=== PATIENT | male | born 1980 ===

== ENCOUNTER 2017-09-09 05:48 | Emergency (ER) | payer SELFPAY ==
[2017-09-09 05:49] VITALS: BMI 21.4
--- NOTE | 2017-09-09 06:35 | ED PDOC ---
Arrival/HPI - General Chief Complaint: Body Fluid Exposure Time Seen by Provider: 09/09/17 06:34 Historian: Patient - History of Present Illness Narrative History of Present Illness (Text): 09/09/17 06:34 Tawny Patel is a 36 year old male, whose past medical history includes mitral valve prolapse, who presents to the Emergency department complaining of fever. Patient states he developed subjective fever yesterday evening with associated body aches, sore throat, headache, and dizziness. Patient states he did not receive an influenza vaccination this year. Patient denies any chest pain, shortness of breath, nausea, vomiting, diarrhea, urinary symptoms, back pain, neck pain, or any other complaints. Time/Duration: Other (yesterday) Symptom Onset: Gradual Symptom Course: Unchanged Activities at Onset: Light Context: Home Past Medical History - Provider Review Nursing Documentation Reviewed: Yes - Past Medical History Past Medical History: No Previous - Pulmonary Hx Respiratory Disorders: No - Neurological Hx Neurological Disorder: No - HEENT Hx HEENT Disorder: No - Renal Hx Renal Disorder: No - Endocrine/Metabolic Hx Endocrine Disorders: No - Hematological/Oncological Hx Blood Disorders: No - Integumentary Hx Dermatological Disorder: No - Musculoskeletal/Rheumatological Hx Musculoskeletal Disorders: No - Gastrointestinal Hx Gastrointestinal Disorders: No - Genitourinary/Gynecological Hx Genitourinary Disorders: No - Psychiatric Hx Depression: No Hx Emotional Abuse: No Hx Physical Abuse: No Hx Substance Use: No - Past Surgical History Past Surgical History: No Previous - Suicidal Assessment Feels Threatened In Home Enviroment: No Family/Social History - Physician Review Nursing Documentation Reviewed: Yes Family/Social History: Unknown Family HX Smoking Status: Never Smoked Hx Alcohol Use: Yes Hx Substance Use: No Hx Substance Use Treatment: No Allergies/Home Meds Allergies/Adverse Reactions: Allergies No Known Allergies Allergy (Verified 04/28/16 09:35) Review of Systems - Physician Review All systems were reviewed & negative as marked: Yes - Review of Systems Constitutional: Fevers Eyes: Normal ENT: Sore Throat Respiratory: absent: Cough Cardiovascular: Normal. absent: Chest Pain Gastrointestinal: Normal. absent: Abdominal Pain, Diarrhea, Nausea, Vomiting Genitourinary Male: Normal. absent: Dysuria, Frequency, Hematuria, Urinary Output Changes Musculoskeletal: Myalgias (+generalized body aches). absent: Back Pain, Neck Pain Skin: Normal. absent: Rash Neurological: Headache, Dizziness Endocrine: Normal Hemo/Lymphatic: Normal Psychiatric: Normal Physical Exam Vital Signs Reviewed: Yes Vital Signs Temp Pulse Resp BP Pulse Ox 09/09/17 07:58 78 18 126/66 97 09/09/17 07:43 99.2 F 09/09/17 07:07 99.2 F 85 20 122/64 95 09/09/17 06:23 100.0 F H 111 H 18 130/72 99 Temperature: Febrile Blood Pressure: Normal Pulse: Regular Respiratory Rate: Normal Appearance: Positive for: Well-Appearing, Non-Toxic, Comfortable Pain Distress: None Mental Status: Positive for: Alert and Oriented X 3 - Systems Exam Head: Present: Atraumatic, Normocephalic Pupils: Present: PERRL Extroacular Muscles: Present: EOMI Conjunctiva: Present: Normal Ears: Present: Normal, NORMAL TM, Normal Canal. No: Erythema, TM Bulging, Fluid , TM Perf Mouth: Present: Moist Mucous Membranes Pharnyx: Present: ERYTHEMA (Pharyngeal erythema). No: EXUDATE, TONSILS ENLARGED , Peritonsilar Swelling, Uvular Deviation, Muffled/Hoarse Voice, Strider, Soft Palate/Uvular Edema Nose (External): Present: Atraumatic Nose (Internal): Present: Normal Inspection Neck: Present: Normal Range of Motion. No: Meningeal Signs, MIDLINE TENDERNESS , Paraspinal Tenderness Respiratory/Chest: Present: Clear to Auscultation, Good Air Exchange. No: Respiratory Distress, Accessory Muscle Use Cardiovascular: Present: Regular Rate and Rhythm, Normal S1, S2. No: Murmurs Abdomen: No: Tenderness, Distention, Peritoneal Signs Back: Present: Normal Inspection Upper Extremity: Present: Normal Inspection. No: Cyanosis, Edema Lower Extremity: Present: Normal Inspection. No: Edema Neurological: Present: GCS=15, CN II-XII Intact, Speech Normal Skin: Present: Warm, Dry, Normal Color. No: Rashes Psychiatric: Present: Alert, Oriented x 3, Normal Insight, Normal Concentration Medical Decision Making ED Course and Treatment: 09/09/17 06:34 Impression: 36 year old male complaining of subjective fever, sore throat, body aches, headache, and dizziness since yesterday evening. Plan: -- Labs -- Rapid influenza, rapid strep -- Reassess and disposition Progress Notes: - Lab Interpretations Lab Results: 09/09/17 06:40 Lab Results 09/09/17 06:40: Influenza Typ A,B (EIA) Negative for flu a/b, Grp A Beta Strep Ag Positive H 09/09/17 06:40: WBC 13.3 H, RBC 5.07, Hgb 14.5, Hct 42.0, MCV 82.8, MCH 28.6, MCHC 34.5, RDW 13.0, Plt Count 185, MPV 9.8, Gran % 84.1 H, Lymph % (Auto) 9.9 L , [place] % (Auto) 5.0, Eos % (Auto) 0.8 L, Baso % (Auto) 0.2, Gran # 11.17 H, Lymph # (Auto) 1.3, [place] # (Auto) 0.7 H, Eos # (Auto) 0.1, Baso # (Auto) 0.02 - RAD Interpretation Radiology Orders: 09/09/17 06:36 CHEST TWO VIEWS (PA/LAT) [RAD] Stat - Medication Orders Current Medication Orders: Discontinued Medications Ceftriaxone Sodium (Rocephin 1 Gram Ivpb) 1 gm in 100 mls @ 200 mls/hr IVPB STAT STA PRN Reason: Protocol Stop: 09/09/17 07:59 Last Admin: 09/09/17 07:38 Dose: 200 mls/hr eMAR Start Stop Document 09/09/17 07:38 OCS (Rec: 09/09/17 07:38 OCS [id number]) Intravenous Solution Start Date 09/09/17 Start Time 07:38 End Date 09/09/17 End time 08:08 Total Infusion Time 30 Ibuprofen (Motrin Tab) 800 mg PO STAT STA Stop: 09/09/17 07:37 Last Admin: 09/09/17 07:43 Dose: 800 mg MAR Pain/Vitals Document 09/09/17 07:43 OCS (Rec: 09/09/17 07:46 OCS [id number]) Pain Reassessment Is This A Pain ReAssessment? Yes Sleep Is patient sleeping during reassessment? No Presence of Pain Presence of Pain Yes Pain Scale Used Pain Scale Used Numeric Location Pain Location Body Site Generalized Description Constant Intensity 8 Scale Used Numeric Pain Behavior Irritability Restlessness Facial Grimacing VS Changes Aggravating Factors ADL's Vitals Temperature (97.6 F-99.6 F) 99.2 F Temperature Source Oral - Transfer of Care Patient signed out to Dr:: salma labs and dispo - Scribe Statement The provider has reviewed the documentation as recorded by the Scribdarren Melton Provider Scribe Attestation: All medical record entries made by the Scribe were at my direction and personally dictated by me. I have reviewed the chart and agree that the record accurately reflects my personal performance of the history, physical exam, medical decision making, and the department course for this patient. I have also personally directed, reviewed, and agree with the discharge instructions and disposition. Disposition/Present on Arrival - Present on Arrival Any Indicators Present on Arrival: No History of DVT/PE: No History of Uncontrolled Diabetes: No Urinary Catheter: No History of Decub. Ulcer: No History Surgical Site Infection Following: None - Disposition Have Diagnosis and Disposition been Completed?: Yes Diagnosis: Strep sore throat, Mitral valve prolapse Disposition: HOME/ ROUTINE Disposition Time: 07:00 Condition: GOOD Discharge Instructions (ExitCare): Mitral Valve Prolapse, Strep Throat (DC) Additional Instructions: Ysrael - Start the Keflex later today. Rest, Plenty of Fluids, Tylenol for Fever, Motrin for Body Aches, Follow up with your doctor next week. Return to us if worse or new symptoms. Avel- Dr. Musa Titus Prescriptions: Cephalexin [cephalexin] 500 mg PO QID #40 cap Forms: [facility] ([place]), SCHOOL NOTE, WORK NOTE
[2017-09-09 07:01] LABS: BASO # 0.02 K/mm3 (0.0-2.0); BASO % 0.2 % (0.0-3.0); EOS # 0.1 (0.0-0.7); EOS % 0.8 % (1.5-5.0); GRAN # 11.17 (1.4-6.5); GRAN % 84.1 % (50.0-68.0); HEMOGLOBIN 14.5 g/dL (14.0-18.0); LYMPH # 1.3 (1.2-3.4); LYMPH % 9.9 % (22.0-35.0); MEAN CELL VOLUME 82.8 fl (80.0-105.0); MEAN CORPUSCULAR HEMOGLOBIN 28.6 pg (25.0-35.0); MEAN CORPUSCULAR HGB CONC 34.5 g/dl (31.0-37.0); MEAN PLATELET VOLUME 9.8 fl (7.0-11.0); MONO # 0.7 (0.1-0.6); RBC 5.07 10^6/uL (3.5-6.1); WHITE BLOOD COUNT 13.3 10^3/ul (4.5-11.0)
[2017-09-09 07:09] VITALS: TEMP 99.2
--- NOTE | 2017-09-09 07:18 | ED PDOC ---
Physical Exam Vital Signs Reviewed: Yes Vital Signs Temp Pulse Resp BP Pulse Ox 09/09/17 07:07 99.2 F 85 20 122/64 95 09/09/17 06:23 100.0 F H 111 H 18 130/72 99 Temperature: Febrile Blood Pressure: Normal Pulse: Tachycardic Respiratory Rate: Normal Medical Decision Making ED Course and Treatment: 09/09/17 07:18 Patient endorsed to me by Dr. Odom, pending labs, re-evaluation and disposition. 09/09/17 07:33 Labs reviewed, patient is positive for strep throat. Plan is to discharge patient home with prescription for Keflex. I have discussed the results and plan with the patient, who expresses understanding. Patient is stable for discharge. Patient was instructed to follow up with physician or return if symptoms worsen or new concerning symptoms arise. - Lab Interpretations Lab Results: 09/09/17 06:40 Lab Results 09/09/17 06:40: Influenza Typ A,B (EIA) Negative for flu a/b, Grp A Beta Strep Ag Positive H 09/09/17 06:40: WBC 13.3 H, RBC 5.07, Hgb 14.5, Hct 42.0, MCV 82.8, MCH 28.6, MCHC 34.5, RDW 13.0, Plt Count 185, MPV 9.8, Gran % 84.1 H, Lymph % (Auto) 9.9 L , [place] % (Auto) 5.0, Eos % (Auto) 0.8 L, Baso % (Auto) 0.2, Gran # 11.17 H, Lymph # (Auto) 1.3, [place] # (Auto) 0.7 H, Eos # (Auto) 0.1, Baso # (Auto) 0.02 - RAD Interpretation Radiology Orders: 09/09/17 06:36 CHEST TWO VIEWS (PA/LAT) [RAD] Stat - Medication Orders Current Medication Orders: Ceftriaxone Sodium (Rocephin 1 Gram Ivpb) 1 gm in 100 mls @ 200 mls/hr IVPB STAT STA PRN Reason: Protocol Stop: 09/09/17 07:59 Ibuprofen (Motrin Tab) 800 mg PO STAT STA Stop: 09/09/17 07:37 - Scribe Statement The provider has reviewed the documentation as recorded by the Scribdarren Braga Provider Scribe Attestation: All medical record entries made by the Scribe were at my direction and personally dictated by me. I have reviewed the chart and agree that the record accurately reflects my personal performance of the history, physical exam, medical decision making, and the department course for this patient. I have also personally directed, reviewed, and agree with the discharge instructions and disposition. Disposition/Present on Arrival - Present on Arrival Any Indicators Present on Arrival: No History of DVT/PE: No History of Uncontrolled Diabetes: No Urinary Catheter: No History of Decub. Ulcer: No History Surgical Site Infection Following: None - Disposition Have Diagnosis and Disposition been Completed?: Yes Diagnosis: Strep sore throat, Mitral valve prolapse Disposition: HOME/ ROUTINE Disposition Time: 07:33 Patient Plan: Discharge Condition: GOOD Discharge Instructions (ExitCare): Mitral Valve Prolapse, Strep Throat (DC) Additional Instructions: Ysrael - Start the Keflex later today. Rest, Plenty of Fluids, Tylenol for Fever, Motrin for Body Aches, Follow up with your doctor next week. Return to us if worse or new symptoms. Avel- Dr. Musa Titus Prescriptions: Cephalexin [cephalexin] 500 mg PO QID #40 cap Forms: [facility] ([place]), WORK NOTE, SCHOOL NOTE
[2017-09-09 07:22] LABS: INFLUENZA A B NEGATIVE FOR FLU A/B (NEGATIVE)
[2017-09-09] MEDS ORDERED: cefTRIAXone 1 gm 1 GM/100 ML BAG IVPB STA (07:30)
--- NOTE | 2017-09-09 07:56 | RAD ---
HISTORY: fever COMPARISON: 04/28/2016 TECHNIQUE: Chest PA and lateral FINDINGS: LUNGS: No active pulmonary disease. PLEURA: No significant pleural effusion identified. No pneumothorax apparent. CARDIOVASCULAR: Normal. OSSEOUS STRUCTURES: No significant abnormalities. VISUALIZED UPPER ABDOMEN: Normal. OTHER FINDINGS: None. IMPRESSION: No active disease.
[2017-09-09 07:58] VITALS: BP 126/66; PULSE 78; RESP 18; O2SAT 97
== END 2017-09-09 08:20 | disposition home or self-care (01) ==
LOC: ED 05:48
DX: J02.0 Streptococcal pharyngitis (principal); I34.1 Nonrheumatic mitral (valve) prolapse
CPT/HCPCS: 71046; 85025; 87430; 87804; 96365; 99282; J0696